=== PATIENT | female | born 1950 | race Caucasian/White ===

== ENCOUNTER 2016-10-12 00:06 | Inpatient (IN) ==
--- NOTE | 2016-10-12 00:47 | Emergency Department Note ---
Disposition Clinical Impression: Internal hernia, Small bowel obstruction Disposition: Admitted As Inpatient Condition: Serious Time of Disposition: 05:00 Abdominal Pain HPI - General Chief Complaint: ED Abdominal Pain Stated Complaint: LLQ ABD pain Time Seen by Provider: 10/12/16 00:20 Source: patient Mode of arrival: ambulatory Limitations: no limitations Nursing Notes Reviewed: Yes Vital Signs Reviewed: Yes - History of Present Illness HPI Narrative: Patient is a 66-year-old female who presents today due to acute left lower quadrant abdominal pain that started at 6 PM the prior evening and then got worse and spread up to her epigastric region. She admits to diaphoresis, nausea , one episode of vomiting, one episode of green stool. She is in significant pain and writhing around on exam, diaphoretic. She does admit to having appendectomy, cholecystectomy, hysterectomy in the past. She describes her pain as sharp left lower quadrant, no radiation, 10 out of 10. Pain Scale: 10 - Related Data Home Medications Medication Instructions Recorded Confirmed Levothyroxine [Synthroid] 137 mcg PO 02/14/15 02/14/15 Simvastatin 02/14/15 02/14/15 TraMADol 02/14/15 02/14/15 Zoloft 02/14/15 02/14/15 Allergies Allergy/AdvReac Type Severity Reaction Status Date / Time No Known Allergies Allergy Verified 02/14/15 03:20 All systems ED: reviewed and negative except as stated. Constitutional: Denies: fever Cardiovascular: Denies: chest pain Respiratory: Denies: dyspnea Gastrointestinal: Reports: abdominal pain, nausea, vomiting. Denies: diarrhea Abdominal Pain PMH - Past Medical History Medical history: Reports: arthritis, asthma, thyroid disease, other Female Surgical History: Reports: appendectomy, cholecystectomy, hysterectomy Psychiatric history: Reports: anxiety, depression - Social History Smoking status: Former smoker Alcohol use: Reports: none Drug use: Reports: none Physical Exam - General Limitations: no limitations General appearance: alert, anxious, in distress - Head Head exam: atraumatic, normocephalic, normal inspection - Eye Eye exam: Present: normal appearance, PERRL, EOMI - ENT ENT exam: normal exam, normal oropharynx, mucous membranes moist - Neck Neck exam: Present: normal inspection, full ROM, trachea midline - Chest Chest inspection: Present: normal inspection, symmetric chest wall rise - Respiratory Respiratory exam: Present: normal lung sounds bilaterally - Cardiovascular Cardiovascular exam: Present: regular rate, normal rhythm, normal heart sounds - Abdominal Exam Abdominal exam: Present: soft, tenderness (Significant tenderness of the left lower quadrant, abdomen appears to be distended.). Absent: guarding - Extremities Exam Extremities exam: Present: normal inspection, full ROM. Absent: tenderness, pedal edema - Neurological Exam Neurological exam: Present: alert, oriented X3 - Psychiatric Psychiatric exam: Present: anxious - Skin Skin exam: Present: intact, normal color, diaphoresis Course Course Narrative: Blood pressure was mildly high at 140s, likely secondary to pain. Otherwise, the rest of the vitals were within normal limits. Physical exam showed a diaphoretic patient, visibly uncomfortable, Significant tenderness of the left lower quadrant, abdomen appears to be distended. Labs showed elevation in white blood cell count. BMP was not concerning. LFTs within normal limits. Troponin negative. Patient given Dilaudid for pain control. Patient had a CT of the abdomen and pelvis that showed an internal hernia resulting in a small bowel obstruction. I called the surgeon on-call, Dr. Devine, who requested that I place an NG tube and then admitted the patient to surgical floor and he will further evaluate the patient. Abdomen/Pelvis CT 10/12/16 01:06 IMPRESSION: Internal hernia resulting in small-bowel obstruction. This is considered a closed loop obstruction. There is no evidence of pneumatosis or portal venous gas. Findings were discussed with Dr. Ayan Kramer at 2:46 am on 10/12/2016. D/ / Priyank Szymanski MD / Priyank Szymanski MD Interpreting Provider: Priyank Szymanski MD X-Ray 10/12/16 04:01 IMPRESSION: Nasogastric drain tip projects over the gastric body. D/ / Priyank Szymanski MD / Priyank Szymanski MD Interpreting Provider: Priyank Szymanski MD Vital Signs Temperature 97.4 F L 10/12/16 00:11 Pulse Rate 78 10/12/16 00:11 Respiratory Rate 20 10/12/16 00:11 Blood Pressure 148/90 10/12/16 00:11 O2 Sat by Pulse Oximetry 96 10/12/16 00:11 Temperature 97.4 F L 10/12/16 08:27 Pulse Rate 89 10/12/16 08:27 Respiratory Rate 16 10/12/16 08:27 Blood Pressure 124/71 10/12/16 08:27 O2 Sat by Pulse Oximetry 96 10/12/16 08:27 Oxygen Delivery Oxygen Delivery Nasal Cannula Abdominal Pain - MDM Narrative Medical decision making narrative: Blood pressure was mildly high at 140s, likely secondary to pain. Otherwise, the rest of the vitals were within normal limits. Physical exam showed a diaphoretic patient, visibly uncomfortable, Significant tenderness of the left lower quadrant, abdomen appears to be distended. Labs showed elevation in white blood cell count. BMP was not concerning. LFTs within normal limits. Troponin negative. Patient given Dilaudid for pain control. Patient had a CT of the abdomen and pelvis that showed an internal hernia resulting in a small bowel obstruction. I called the surgeon on-call, Dr. Devine, who requested that I place an NG tube and then admitted the patient to surgical floor and he will further evaluate the patient. - Medical Records Medical records reviewed: Yes I reviewed the patient's medical records. - Lab Data Lab results reviewed: Yes I reviewed the patient's lab results. Result diagrams: 10/12/16 00:45 10/12/16 00:45 Lab Results 10/12/16 10/12/16 10/12/16 Range/Units 00:45 00:45 00:45 WBC 15.8 H (4.3-11.1) K/mcL RBC 4.67 (3.82-4.97) M/mcL Hgb 13.5 (11.5-15.4) g/dL Hct 39.4 (35.3-44.9) % MCV 84.4 (83.0-100.0) fL MCH 28.9 (28.0-33.3) pg MCHC 34.3 (31.6-35.5) g/dL RDW 12.4 (11.5-14.5) % Plt Count 296 (140-400) K/mcL MPV 9.2 L (9.4-12.4) fL Immature Gran % 0.6 (0-4) % Seg Neutrophils % 70.1 % Lymphocytes % 21.3 % Monocytes % 7.3 % Eosinophils % 0.4 % Basophils % 0.3 % Neutrophils # 11.1 H (1.6-8.9) K/mcL Lymphocytes # 3.4 (0.6-4.6) K/mcL Monocytes # 1.2 (0.0-1.3) K/mcL Eosinophils # 0.1 (0.0-0.6) K/mcL Basophils # 0.0 (0.0-0.2) K/mcL Sodium 139 (136-145) mEq/L Potassium 3.4 L (3.5-4.5) mEq/L Chloride 106 (98-109) mEq/L Carbon Dioxide 20 (19-29) mEq/L BUN 20 (7-20) mg/dL Creatinine 0.79 (0.57-1.11) mg/dL Est GFR ( Amer) > 60 (> 60) Est GFR (Non-Af Amer) > 60 (> 60) BUN/Creatinine Ratio 25 (6-26) Glucose 218 H (70-99) mg/dL POC Glucose (58-89) Calculated Osmolality 297 (280-300) Lactic Acid (0.5-2.2) mmol/L Calcium 9.7 (8.6-10.8) mg/dL Total Bilirubin 0.5 (0.2-1.2) mg/dL Direct Bilirubin 0.2 (0.0-0.5) mg/dL Indirect Bilirubin 0.3 (0.0-1.2) mg/dL AST 19 (5-34) Units/L ALT 17 (0-55) Units/L Alkaline Phosphatase 109 (38-126) Units/L Troponin I 0.01 (0-0.03) ng/mL Serum Total Protein 7.1 (6.0-8.3) g/dL Albumin 4.2 (3.5-5.0) g/dL Globulin 2.9 (2.4-3.5) g/dL Albumin/Globulin Ratio 1.4 (1.1-2.2) Lipase 23 (8-78) Units/L Urine Color (Yellow) Urine Clarity (Clear) Urine pH (5.0-8.0) pH Units Ur Specific [place] (1.010-1.025) Urine Protein (Neg-Trace) mg/dL Urine Glucose (UA) (Normal) mg/dL Urine Ketones (Negative) mg/dL Urine Blood (Negative) Urine Nitrite (Negative) Urine Bilirubin (Negative) Urine Urobilinogen (Normal) mg/dL Ur Leukocyte Esterase (Negative) Urine Microscopic RBC (0-3) per hpf Urine Microscopic WBC (0-3) per hpf Ur Squamous Epith Cells (None-Few) per lpf Urine Bacteria (None-Few) per hpf Hyaline Casts (None-Few) per lpf Ur Culture Indicated? (NO) 10/12/16 10/12/16 10/12/16 Range/Units 01:17 03:24 05:50 WBC (4.3-11.1) K/mcL RBC (3.82-4.97) M/mcL Hgb (11.5-15.4) g/dL Hct (35.3-44.9) % MCV (83.0-100.0) fL MCH (28.0-33.3) pg MCHC (31.6-35.5) g/dL RDW (11.5-14.5) % Plt Count (140-400) K/mcL MPV (9.4-12.4) fL Immature Gran % (0-4) % Seg Neutrophils % % Lymphocytes % % Monocytes % % Eosinophils % % Basophils % % Neutrophils # (1.6-8.9) K/mcL Lymphocytes # (0.6-4.6) K/mcL Monocytes # (0.0-1.3) K/mcL Eosinophils # (0.0-0.6) K/mcL Basophils # (0.0-0.2) K/mcL Sodium (136-145) mEq/L Potassium (3.5-4.5) mEq/L Chloride (98-109) mEq/L Carbon Dioxide (19-29) mEq/L BUN (7-20) mg/dL Creatinine (0.57-1.11) mg/dL Est GFR ( Amer) (> 60) Est GFR (Non-Af Amer) (> 60) BUN/Creatinine Ratio (6-26) Glucose (70-99) mg/dL POC Glucose 162 H (58-89) Calculated Osmolality (280-300) Lactic Acid 1.6 (0.5-2.2) mmol/L Calcium (8.6-10.8) mg/dL Total Bilirubin (0.2-1.2) mg/dL Direct Bilirubin (0.0-0.5) mg/dL Indirect Bilirubin (0.0-1.2) mg/dL AST (5-34) Units/L ALT (0-55) Units/L Alkaline Phosphatase (38-126) Units/L Troponin I (0-0.03) ng/mL Serum Total Protein (6.0-8.3) g/dL Albumin (3.5-5.0) g/dL Globulin (2.4-3.5) g/dL Albumin/Globulin Ratio (1.1-2.2) Lipase (8-78) Units/L Urine Color Yellow (Yellow) Urine Clarity Clear (Clear) Urine pH 6.0 (5.0-8.0) pH Units Ur Specific [place] 1.021 (1.010-1.025) Urine Protein Negative (Neg-Trace) mg/dL Urine Glucose (UA) 250 H (Normal) mg/dL Urine Ketones 40 H (Negative) mg/dL Urine Blood Trace H (Negative) Urine Nitrite Negative (Negative) Urine Bilirubin Negative (Negative) Urine Urobilinogen Normal (Normal) mg/dL Ur Leukocyte Esterase Moderate H (Negative) Urine Microscopic RBC 0-3 (0-3) per hpf Urine Microscopic WBC 5-15 H (0-3) per hpf Ur Squamous Epith Cells Many H (None-Few) per lpf Urine Bacteria None Seen (None-Few) per hpf Hyaline Casts None Seen (None-Few) per lpf Ur Culture Indicated? YES A (NO) - Radiology Data Radiology results reviewed: Yes I reviewed the patient's radiology results. Abdomen/Pelvis CT 10/12/16 01:06 IMPRESSION: Internal hernia resulting in small-bowel obstruction. This is considered a closed loop obstruction. There is no evidence of pneumatosis or portal venous gas. Findings were discussed with Dr. Ayan Kramer at 2:46 am on 10/12/2016. D/ / Priyank Szymanski MD / Priyank Szymanski MD Interpreting Provider: Priyank Szymanski MD X-Ray 10/12/16 04:01 IMPRESSION: Nasogastric drain tip projects over the gastric body. D/ / Priyank Szymanski MD / Priyank Szymanski MD Interpreting Provider: Priyank Szymanski MD Attestation Statement - Attestation Attestation: I, Sin Mcclain MD, personally evaluated this patient and discussed their management with the resident physician. I reviewed the resident's note and agree with the documented findings, medical decision making, and plan of care. 66-year-old female presents to the emergency department with a complaint of acute onset of left lower quadrant abdominal pain which started about 6 PM this evening and then Progressively worse and spread throughout the abdomen. She complains of nausea and one episode of vomiting. No fever. No history of similar problems. On examination patient is a well-developed well-nourished elderly female in no acute distress but does appear to be in moderate discomfort. She is alert and oriented 3. There is no cyanosis. She is diaphoretic. Breath sounds are clear and equal bilaterally. Heart regular. Abdomen is soft with bowel sounds. There is moderate left lower quadrant tenderness with mild guarding. Labs reviewed. CT of the abdomen and pelvis shows an internal hernia resulting in small bowel obstruction. The surgeon transportation museum helper, Dr. Devine, was consulted and accepted admission of the patient to his service.
[2016-10-12 00:53] LABS: Basophils % 0.3 %; Eosinophils # 0.1 K/mcL (0.0-0.6); Eosinophils % 0.4 %; Hematocrit 39.4 % (35.3-44.9); Hemoglobin 13.5 g/dL (11.5-15.4); Immature Granulocytes % 0.6 % (0-4); Lymphocytes # 3.4 K/mcL (0.6-4.6); Lymphocytes % 21.3 %; Mean Corpuscular HGB Conc 34.3 g/dL (31.6-35.5); Mean Corpuscular Hemoglobin 28.9 pg (28.0-33.3); Mean Corpuscular Volume 84.4 fL (83.0-100.0); Mean Platelet Volume 9.2 fL (9.4-12.4); Monocytes # 1.2 K/mcL (0.0-1.3); Monocytes % 7.3 %; Neutrophils # 11.1 K/mcL (1.6-8.9); Platelet Count 296 K/mcL (140-400); Red Blood Count 4.67 M/mcL (3.82-4.97); Red Cell Distribution Width 12.4 % (11.5-14.5); Segmented Neutrophils % 70.1 %
[2016-10-12 01:07] LABS: Alanine Aminotransferase 17 Units/L (0-55); Albumin 4.2 g/dL (3.5-5.0); Albumin/Globulin Ratio 1.4 (1.1-2.2); Alkaline Phosphatase 109 Units/L (38-126); Aspartate Amino Transferase 19 Units/L (5-34); BUN/Creatinine Ratio 25 (6-26); Bilirubin,Direct 0.2 mg/dL (0.0-0.5); Bilirubin,Indirect 0.3 mg/dL (0.0-1.2); Bilirubin,Total 0.5 mg/dL (0.2-1.2); Blood Urea Nitrogen 20 mg/dL (7-20); Calcium 9.7 mg/dL (8.6-10.8); Carbon Dioxide 20 mEq/L (19-29); Chloride 106 mEq/L (98-109); Globulin 2.9 g/dL (2.4-3.5); Glucose 218 mg/dL (70-99); Lipase 23 Units/L (8-78); Osmolality,Calculated 297 (280-300); Potassium 3.4 mEq/L (3.5-4.5); Sodium 139 mEq/L (136-145); Total Protein 7.1 g/dL (6.0-8.3); eGFR For African Americans > 60 (> 60); eGFR For Non-African Americans > 60 (> 60)
[2016-10-12] MEDS ORDERED: *HR* HYDROmorphone (PF) 1 MG/ML SYRINGE IVP ONE ×2 (01:31→04:12)
[2016-10-12] MEDS ORDERED: 0.9 % Sodium Chloride 1,000 ML IVC ONE (01:31)
[2016-10-12] MEDS ORDERED: Ondansetron 4 MG/2 ML VIAL IVP ONE ×2 (01:31→04:12)
[2016-10-12 01:42] LABS: Bilirubin,Urine Negative (Negative); Blood,Urine Trace (Negative); Clarity,Urine Clear (Clear); Color,Urine Yellow (Yellow); Glucose,Urine (UA) 250 mg/dL (Normal); Ketones,Urine 40 mg/dL (Negative); Leukocyte Esterase,Urine Moderate (Negative); Nitrite,Urine Negative (Negative); Protein,Urine Negative (Neg-Trace); Specific Gravity,Urine 1.021 (1.010-1.025); Urobilinogen,Urine Normal (Normal)
[2016-10-12 01:45] LABS: Bacteria,Urine None Seen per hpf (None-Few); Hyaline Casts,Urine None Seen per lpf (None-Few); RBC,Urine 0-3 per hpf (0-3); Squamous Epithelial Cell,Urine Many per lpf (None-Few)
[2016-10-12] MEDS ORDERED: Dexamethasone 4 MG/ML VIAL ONE (05:46)
[2016-10-12] MEDS ORDERED: Ondansetron 4 MG/2 ML VIAL ONE (05:46)
[2016-10-12] MEDS ORDERED: *HR* Succinylcholine 200 MG/10 ML VIAL IVP ONE (05:47)
[2016-10-12] MEDS ORDERED: *HR* Rocuronium Bromide 50 MG/5 ML VIAL ONE (05:47)
[2016-10-12] MEDS ORDERED: *HR* FentaNYL (PF) 100 MCG/2 ML VIAL ONE (05:47)
[2016-10-12] MEDS ORDERED: *HR* Midazolam HCl 2 MG/2 ML VIAL ONE (05:47)
[2016-10-12] MEDS ORDERED: Lidocaine -MPF 2% 2 ML VIAL ONE (05:47)
[2016-10-12] MEDS ORDERED: *HR* Propofol 200 MG/20 ML VIAL IVP ONE (05:47)
--- NOTE | 2016-10-12 06:10 | General Surg History&Physical ---
Date of Encounter: 10/12/16 Time of Encounter: 06:08 Assessment and Plan (1) Small bowel obstruction due to adhesions Current Visit: Yes Status: Acute plan for exploratory laparotomy with reduction of small bowel obstruction. Risks, benefits, and expected outcomes were explained and she agrees to proceed. The assessment and plan as outlined above was discussed with the patient and/or family members who expressed understanding and agreement. All questions were answered. History of Present Illness HPI: Ms. Arriola is a 66 year old female was son's onset of abdominal pain. A CT revealed a closed loop obstruction. She has had emesis 1 time in the She currently has a nasogastric with minimal symptoms. She denies any previous episodes such as this. Pain is rated as a 10/10 and is cramping in nature. Past Med Surg Social Fam HX - Past Medical History Medical history: arthritis, asthma, thyroid disease, other Psychiatric history: anxiety, depression - Past Surgical History Surgical History: appendectomy, cholecystectomy, hysterectomy - Social History Smoking Status: Former smoker Smokeless Tobacco Status: No Alcohol use: none Drug use: none - Family History Mother Hx Family Cardiac Disorders: Yes (HTN) Grandmother Family Member Ethnicity: Non- Living Status: Age at : 71 Hx Family Cancer: Yes (bowel cancer) Medications and Allergies Levothyroxine [Synthroid] 137 mcg PO 02/14/15 [History] Simvastatin 02/14/15 [History] TraMADol 02/14/15 [History] Zoloft 02/14/15 [History] Allergies No Known Allergies Allergy (Verified 02/14/15 03:20) Review of Systems All systems PM: reviewed and no additional remarkable complaints except as stated All systems PM: A 10-system review of systems was performed and is negative for pertinent findings except as documented above in the HPI. General Surgery Exam Initial Vital Signs Temp Pulse Resp BP Pulse Ox 97.4 F L 78 20 148/90 96 10/12/16 00:11 10/12/16 00:11 10/12/16 00:11 10/12/16 00:11 10/12/16 00:11 - General physical appearance well nourished, no distress - Eyes PERRL, normal ocular movement - Neck trachea midline, no lymphadectomy - Respiratory normal respiratory effort - Cardiovascular Cardiovascular exam: Present: RRR - Abdomen Abdomen general surgery: Present: soft, tender Abdominal Tenderness: Present: LLQ - Musculoskeletal Present: normal posture - Psychiatric Psychiatric general surgery: Present: A&Ox3, speech is normal Results - Labs 10/12/16 00:45 10/12/16 00:45 Abnormal lab results WBC 15.8 K/mcL (4.3-11.1) H 10/12/16 00:45 MPV 9.2 fL (9.4-12.4) L 10/12/16 00:45 Neutrophils # 11.1 K/mcL (1.6-8.9) H 10/12/16 00:45 Potassium 3.4 mEq/L (3.5-4.5) L 10/12/16 00:45 Glucose 218 mg/dL (70-99) H 10/12/16 00:45 Urine Glucose (UA) 250 mg/dL (Normal) H 10/12/16 01:17 Urine Ketones 40 mg/dL (Negative) H 10/12/16 01:17 Urine Blood Trace (Negative) H 10/12/16 01:17 Ur Leukocyte Esterase Moderate (Negative) H 10/12/16 01:17 Urine Microscopic WBC 5-15 per hpf (0-3) H 10/12/16 01:17 Ur Squamous Epith Cells Many per lpf (None-Few) H 10/12/16 01:17 Ur Culture Indicated? YES (NO) A 10/12/16 01:17 All other labs normal. - Imaging CT scan - abdomen: image reviewed CT scan - pelvis: image reviewed
[2016-10-12] MEDS ORDERED: *HR* Morphine 2 MG/ML SYRINGE IVP PRN (06:12)
[2016-10-12] MEDS ORDERED: *HR* Promethazine 25 MG/ML VIAL IVP PRN ×3 (06:12→08:31)
[2016-10-12] MEDS ORDERED: Ondansetron 4 MG/2 ML VIAL IVP PRN ×2 (06:12→08:31)
[2016-10-12] MEDS ORDERED: 0.9 % Sodium Chloride 1,000 ML IVC SCH (06:15)
--- NOTE | 2016-10-12 06:15 | Anesthesia Evaluation PreOp ---
Date of Encounter: 10/12/16 Time of Encounter: 06:11 - Past History Planned Operation: Exploratory Laparotomy Cardiac History: Hyperlipidemia Pulmonary History: Former smoker (quit 12 years ago, smoked for 20 years), Asthma, COPD IDENTIFICATION TECHNICIAN History: Denies Any Significant HX Other Medical History: Thyroid, GERD Anesthesia History: No Prior Anesthetic Complications, Past Anesthesia Alcohol Use: none Drug use: none Medications and Allergies Levothyroxine [Synthroid] 137 mcg PO 02/14/15 [History] Simvastatin 02/14/15 [History] TraMADol 02/14/15 [History] Zoloft 02/14/15 [History] Allergies No Known Allergies Allergy (Verified 02/14/15 03:20) - Meds/Allergy Pre-op Review Medications Reviewed: Yes Allergies Reviewed: Yes Beta Blockers on Current Med List: No Anesthesia Results - Labs 10/12/16 00:45 10/12/16 00:45 - Imaging EKG: report reviewed (10/12/2016 SR, minimal ST depression 02/14/2015 SR) Additional studies: 02/14/2015 Nuclear Stress exercise ECG is negative for ischemia EF>70% this study is negative for ischemia or infarct Anesthesia Exam Vital Signs/O2 Sat, Most Current Temp Pulse Resp BP Pulse Ox 97.5 F L 94 16 114/75 99 10/12/16 05:43 10/12/16 05:43 10/12/16 05:43 10/12/16 05:43 10/12/16 05:43 Height: 5'7''/1.7 m Weight: 200 lbs/90.718 kg NPO (# of Hours): 8 Pain Scale: 5 Pain Scale Used: Numeric (1 - 10) - HEENT Pupil (Motor): EOMI Mallampati: II Teeth: Edentulous Oral Opening: Greater than 3 - IDENTIFICATION TECHNICIAN LOC: Oriented IDENTIFICATION TECHNICIAN Motor: Normal RUE, Normal LUE, Normal RLE, Normal LLE, Normal Face IDENTIFICATION TECHNICIAN Sensory: Normal: RUE, LUE, RLE, LLE, Face - Cardiac Rhythm: Regular Murmur: None - Pulmonary Breath Sounds: bilateral Clear Respiratory Effort: Symmetrical Anesthesia Assess/Plan ASA Score: 2 Modified Eze Scale for Level of Consciousness: Cooperative, oriented, and tranquil Anesthetic Plan: General Monitoring Plan: Standard Monitors Recovery Plan: PACU
[2016-10-12] MEDS ORDERED: Albuterol 2.5 MG/3 ML NEBULIZER ONE (06:18)
[2016-10-12] MEDS ORDERED: Albuterol 2.5 MG/3 ML NEBULIZER IH ONE (06:23)
[2016-10-12] MEDS ORDERED: Ringers Solution, Lactated 1,000 ML IVC SCH (06:30)
[2016-10-12] MEDS ORDERED: *HR* HYDROmorphone (PF) 1 MG/ML SYRINGE ONE (07:57)
[2016-10-12] MEDS: *HR* HYDROmorphone (PF) 1 MG/ML SYRINGE IVP PRN ×2 (07:58→08:03)
--- NOTE | 2016-10-12 08:24 | Anesthesia Evaluation Post Op ---
Date of Encounter: 10/12/16 Time of Encounter: 08:23 - Vital Signs Vital Signs: Last Vital Signs Temp 97.4 F L 10/12/16 08:17 Pulse 90 10/12/16 08:17 Resp 17 10/12/16 08:17 BP 131/73 10/12/16 08:17 Pulse Ox 96 10/12/16 08:17 - Lungs Lungs: Clear Ascult./Percussion - Airway Airway: Non-obstructed - Cardiovascular Regular Rate - Mental Status Mental Status: Alert & Oriented, Answers Appropriately - Pain Pain Scale: 2 - Nausea Vomiting Nausea Vomiting: Not Present - Hydration Hydration: NPO - Discharge PostOp Status: Transfer Patient to floor
[2016-10-12] MEDS ORDERED: Pantoprazole 40 MG VIAL IVP SCH (09:00)
[2016-10-12] MEDS: 0.9 % Sodium Chloride 1,000 ML IVC SCH ×2 (09:14→22:30)
[2016-10-12] MEDS: *HR* Morphine 2 MG/ML SYRINGE IVP PRN ×4 (09:15→23:48)
[2016-10-12] MEDS: Pantoprazole 40 MG VIAL IVP SCH (09:15)
[2016-10-12] MEDS ORDERED: Neostigmine Methylsulfate 3 MG/3 ML SYRINGE ONE (10:12)
--- NOTE | 2016-10-12 12:28 | Electrocardiograph Report ---
[place] [address] Test Date: 2016-10-12 Pat Name: Nelda Arriola Department: 105 Room: 3A Gender: F Log Getter: : 1950 Requested By: Sin Mcclain Order Number: [id number] Reading MD: Gage Johansen MD Measurements Intervals Charlo Rate: 81 P: 71 WV: 175 QRS: 66 QRSD: 96 T: 73 QT: 403 QTc: 440 Interpretive Statements SINUS RHYTHM BASELINE ARTIFACT Electronically Signed On 10-12-2016 12:27:11 EDT by Gage Johansen MD
[2016-10-12] MEDS: *HR* Heparin 5,000 UNIT/ML VIAL SQ SCH (17:34)
[2016-10-12] MEDS ORDERED: *HR* Heparin 5,000 UNIT/ML VIAL SQ SCH (18:00)
[2016-10-13] MEDS: *HR* Morphine 2 MG/ML SYRINGE IVP PRN ×4 (04:05→22:22)
[2016-10-13] MEDS: *HR* Heparin 5,000 UNIT/ML VIAL SQ SCH ×2 (05:40→18:19)
[2016-10-13 05:42] LABS: Basophils % 0.2 %; Hematocrit 38.5 % (35.3-44.9); Hemoglobin 12.8 g/dL (11.5-15.4); Immature Granulocytes % 0.4 % (0-4); Immature Platelets 1.7 % (1.1-6.1); Lymphocytes # 1.2 K/mcL (0.6-4.6); Lymphocytes % 11.2 %; Mean Corpuscular HGB Conc 33.2 g/dL (31.6-35.5); Mean Corpuscular Hemoglobin 28.8 pg (28.0-33.3); Mean Corpuscular Volume 86.5 fL (83.0-100.0); Mean Platelet Volume 9.2 fL (9.4-12.4); Monocytes # 1.1 K/mcL (0.0-1.3); Monocytes % 10.9 %; Platelet Count 295 K/mcL (140-400); Red Blood Count 4.45 M/mcL (3.82-4.97); Segmented Neutrophils % 77.3 %
[2016-10-13 05:57] LABS: BUN/Creatinine Ratio 18 (6-26); Blood Urea Nitrogen 12 mg/dL (7-20); Calcium 8.9 mg/dL (8.6-10.8); Carbon Dioxide 24 mEq/L (19-29); Chloride 106 mEq/L (98-109); Glucose 170 mg/dL (70-99); Osmolality,Calculated 294 (280-300); Potassium 3.7 mEq/L (3.5-4.5); Sodium 140 mEq/L (136-145); eGFR For African Americans > 60 (> 60); eGFR For Non-African Americans > 60 (> 60)
[2016-10-13] MEDS: Pantoprazole 40 MG VIAL IVP SCH (08:36)
[2016-10-13] MEDS ORDERED: 0.9 % Sodium Chloride 1,000 ML IVC ONE (13:25)
--- NOTE | 2016-10-13 13:37 | General Surgery Progress Note ---
Date of Encounter: 10/13/16 Time of Encounter: 13:20 - Assessment and Plan (1) Internal hernia Current Visit: Yes Status: Acute Postop day #1 from exploratory laparotomy, lysis of adhesions and reduction of internal hernia Continue bowel rest while awaiting return of bowel function- may have ice chips , gum, hard tack candy NG tube to low intermittent wall suction- cepacol added for sore throat IV fluids- 75 mL's per hour (1000ml fluid bolus now for low UOP) Supportive care and pain control- Toradol added for the next 48 hours Ambulate hallways 3 times a day with assistance- may clamp NG tube for ambulation Strict measurement of intake and output Incentive spirometer every 1 hour while awake PPI therapy daily Repeat a.m. BMP (2) DVT prophylaxis Current Visit: Yes Status: Acute Heparin 5000 units subcutaneous twice daily for DVT prophylaxis Intermittent compression stockings to bilateral lower extremity for DVT prophylaxis Ambulate hallways 3 times a day with assistance Subjective Patient reports: feels better, still having pain, pain is less, voiding w/o difficulty (frequent and small amounts (no documentation)), no flatus, no bowel movement, afebrile, other (complaint of sore throat and ear discomfort from NG tube) Objective Vital Signs - Last 8 Hours Temp Pulse Resp BP Pulse Ox 10/13/16 11:40 98.0 F 111 18 139/86 93 10/13/16 07:14 98.2 F 109 16 147/88 92 Intake and Output 10/12/16 10/13/16 10/13/16 23:59 07:59 15:59 Intake Total 1000 / 1000 0 / 0 1000 / 1000 Output Total 50 / 50 200 / 200 Balance 950 / 950 -200 / -200 1000 / 1000 Intake: IV Fluids 1000 / 1000 1000 / 1000 0.9 % Sodium Chloride 1, 1000 / 1000 1000 / 1000 000 ML @ 75 mls/hr IVC . [id number] RADHA Rx#: [id number] Oral 0 / 0 0 / 0 0 / 0 Output: Urine 50 / 50 0 / 0 Gastric Drainage 200 / 200 Other: Meal npo # Urine Diapers 1 Weight 89.811 kg Blood Glucose* 160 153 147 Patient Weight 10/13/16 23:59 Weight 89.811 kg - General physical appearance well developed, well nourished, no distress, moderate pain - Eyes normal ocular movement - ENT dry mucosa, atraumatic, normocephalic - Neck Neck exam: trachea midline - Respiratory normal respiratory effort, clear to auscultation - Cardiovascular Cardiovascular exam: Present: tachycardia - Abdomen Abdomen: Present: bowel sounds present (minimal), soft, tender (Expected postoperative tenderness) - Incision Incision: Present: clean and dry, intact - Neurologic CN 2-12 grossly intact - Psychiatric oriented to time, oriented to person, oriented to place, speech is normal, memory intact - Labs 10/13/16 05:02 10/13/16 05:02 Diabetes panel 10/13/16 Range/Units 05:02 Sodium 140 (136-145) mEq/L Potassium 3.7 (3.5-4.5) mEq/L Chloride 106 (98-109) mEq/L Carbon Dioxide 24 (19-29) mEq/L BUN 12 (7-20) mg/dL Creatinine 0.68 (0.57-1.11) mg/dL Glucose 170 H (70-99) mg/dL Calcium 8.9 (8.6-10.8) mg/dL Calcium panel 10/13/16 Range/Units 05:02 Calcium 8.9 (8.6-10.8) mg/dL Pituitary panel 10/13/16 Range/Units 05:02 Sodium 140 (136-145) mEq/L Potassium 3.7 (3.5-4.5) mEq/L Chloride 106 (98-109) mEq/L Carbon Dioxide 24 (19-29) mEq/L BUN 12 (7-20) mg/dL Creatinine 0.68 (0.57-1.11) mg/dL Glucose 170 H (70-99) mg/dL Calcium 8.9 (8.6-10.8) mg/dL Adrenal panel 10/13/16 Range/Units 05:02 Sodium 140 (136-145) mEq/L Potassium 3.7 (3.5-4.5) mEq/L Chloride 106 (98-109) mEq/L Carbon Dioxide 24 (19-29) mEq/L BUN 12 (7-20) mg/dL Creatinine 0.68 (0.57-1.11) mg/dL Glucose 170 H (70-99) mg/dL Calcium 8.9 (8.6-10.8) mg/dL - VTE Documentation of Mechanical Device: Intermittent pneumatic compression device Consult Discharge Plan - Plan Referrals: Chidi Emery MD [Primary Care Provider] -
--- NOTE | 2016-10-13 14:39 | Operative Note ---
Date of procedure: 10/12/16 Pre-op diagnosis: small bowel obstruction Post-op diagnosis: same Procedure: Exploratory laparotomy with lysis of adhesions times 35 minutes, followed by closure of internal hernia Anesthesia: SIMRAN Surgeon: Naif Devine Estimated blood loss (cc): 5 Condition: stable Disposition: floor Procedure in Detail: After informed consent, the patient was taken to the operating room placed in a supine position. After adequate sedation and anesthesia the abdomen was prepped and draped. Midline incision was made approximately 12 cm in length. Dissection was carried down through the subcutaneous tissues and through the linea alba. A Bookwalter retractor was placed on the field and used to retract the abdomen. There is significant amount of ascites identified in the abdomen. There is no foul smell or succus. After the abdomen was suctioned dry I was able to identify a 3 foot loop of small bowel which had herniated through an internal hernia. Small bowel was reduced. During which time after reduction, the colon was dissected free from the lateral pelvic sidewall. This had created the internal hernia from her previous hysterectomy site. Once this was completed then the internal hernia was closed with a 0 Vicryl suture in running fashion. Approximately 20 minutes had passed after reducing the small bowel. It revealed a more healthy-looking color as well as peristalsis. Therefore no small bowel was resected. At this point the procedure was terminated Seprafilm was placed in the abdomen. The abdominal wall was closed with a looped PDS suture times 2. The skin was closed bob. She tolerated the procedure well.
[2016-10-13] MEDS: 0.9 % Sodium Chloride 1,000 ML IVC SCH (14:55)
[2016-10-13] MEDS: Ketorolac 15 MG/ML VIAL IVP SCH (18:18)
[2016-10-14] MEDS: Ketorolac 15 MG/ML VIAL IVP SCH ×5 (00:17→23:52)
[2016-10-14] MEDS: 0.9 % Sodium Chloride 1,000 ML IVC SCH (05:01)
[2016-10-14] MEDS: *HR* Heparin 5,000 UNIT/ML VIAL SQ SCH ×2 (05:05→18:09)
[2016-10-14 05:57] LABS: BUN/Creatinine Ratio 22 (6-26); Blood Urea Nitrogen 14 mg/dL (7-20); Calcium 9.1 mg/dL (8.6-10.8); Carbon Dioxide 27 mEq/L (19-29); Chloride 109 mEq/L (98-109); Glucose 122 mg/dL (70-99); Osmolality,Calculated 296 (280-300); Potassium 3.3 mEq/L (3.5-4.5); Sodium 142 mEq/L (136-145); eGFR For African Americans > 60 (> 60); eGFR For Non-African Americans > 60 (> 60)
[2016-10-14] MEDS: Pantoprazole 40 MG VIAL IVP SCH (08:42)
--- NOTE | 2016-10-14 09:33 | General Surgery Progress Note ---
<Neo Reyes - Last Filed: 10/14/16 09:31> Date of Encounter: 10/14/16 Time of Encounter: 09:31 - Assessment and Plan (1) Internal hernia Current Visit: Yes Status: Acute POD # 2 s/p exploratory laparotomy with lysis of adhesions and repair of internal hernia. Continue supportive care and management Afebrile. NPO except ice chips or hard candy NGT output - 200cc yesterday Throat still irritated with lozenge, will change to spray Continue IVF Monitor bowel function Patient to use ICS Encouraged OOB as much as possible and nursing will clamp NGT for ambulation Pain is well controlled at this time. (2) Hypokalemia Current Visit: Yes Status: Acute 20meQ ordered with IVF. Recheck tomorrow. Subjective Narrative: Patient is lying comfortably in bed this morning. No concerns overnight. Rojas was placed yesterday and has resulted in good urine output. Pain is well controlled. Throat pain is still present and she reports no BM or flatus. Objective Vital Signs - Last 8 Hours Temp Pulse Resp BP Pulse Ox 10/14/16 07:33 98.1 F 93 16 122/73 93 10/14/16 07:18 91 10/14/16 03:59 98.1 F 110 14 130/79 91 Intake and Output 10/13/16 10/14/16 10/14/16 23:59 07:59 15:59 Intake Total 0 / 0 1000 / 1000 Output Total 120 / 120 3000 / 3000 Balance -120 / -120 -2000 / -2000 Intake: IV Fluids 1000 / 1000 0.9 % Sodium Chloride 1, 1000 / 1000 000 ML @ 75 mls/hr IVC . [id number] [facility] Rx#: [id number] Oral 0 / 0 0 / 0 Output: Urine 120 / 120 1300 / 1300 2-way Urethral 1300 / 1300 Catheter 1700 / 1700 Other: Weight 88.904 kg Blood Glucose* 139 119 Patient Weight 10/14/16 23:59 Weight 88.904 kg - General physical appearance no distress, obese - Neck Neck exam: trachea midline - Respiratory normal respiratory effort, clear to auscultation - Cardiovascular Cardiovascular exam: Present: RRR, no murmurs/rubs/gallops - Abdomen Abdomen: Present: soft, tender (incisional pain), wound (midline incision noted with dressing. clean, dry and bob intact without dehiscence. No erythema or drainage. ). Absent: bowel sounds present - Neurologic CN 2-12 grossly intact - Psychiatric oriented to time, oriented to person, oriented to place, speech is normal, memory intact - Labs 10/13/16 05:02 10/14/16 04:24 Diabetes panel 10/14/16 Range/Units 04:24 Sodium 142 (136-145) mEq/L Potassium 3.3 L (3.5-4.5) mEq/L Chloride 109 (98-109) mEq/L Carbon Dioxide 27 (19-29) mEq/L BUN 14 (7-20) mg/dL Creatinine 0.64 (0.57-1.11) mg/dL Glucose 122 H (70-99) mg/dL Calcium 9.1 (8.6-10.8) mg/dL Calcium panel 10/14/16 Range/Units 04:24 Calcium 9.1 (8.6-10.8) mg/dL Pituitary panel 10/14/16 Range/Units 04:24 Sodium 142 (136-145) mEq/L Potassium 3.3 L (3.5-4.5) mEq/L Chloride 109 (98-109) mEq/L Carbon Dioxide 27 (19-29) mEq/L BUN 14 (7-20) mg/dL Creatinine 0.64 (0.57-1.11) mg/dL Glucose 122 H (70-99) mg/dL Calcium 9.1 (8.6-10.8) mg/dL Adrenal panel 10/14/16 Range/Units 04:24 Sodium 142 (136-145) mEq/L Potassium 3.3 L (3.5-4.5) mEq/L Chloride 109 (98-109) mEq/L Carbon Dioxide 27 (19-29) mEq/L BUN 14 (7-20) mg/dL Creatinine 0.64 (0.57-1.11) mg/dL Glucose 122 H (70-99) mg/dL Calcium 9.1 (8.6-10.8) mg/dL - VTE Documentation of Mechanical Device: Intermittent pneumatic compression device Consult Discharge Plan - Plan Referrals: Chidi Emery MD [Primary Care Provider] - <Luzmaria Glaser - Last Filed: 10/14/16 14:18> Date of Encounter: 10/14/16 - Assessment and Plan (1) DVT prophylaxis Current Visit: Yes Status: Acute (2) Hypokalemia Current Visit: Yes Status: Acute (3) Internal hernia Current Visit: Yes Status: Acute (4) Small bowel obstruction Current Visit: Yes Status: Acute awaiting return of bowel function after surgery continue ngt (5) Hypothyroidism Current Visit: No Status: Chronic start iv synthroid Qualifiers: Hypothyroidism type: unspecified Qualified Code(s): E03.9 - Hypothyroidism , unspecified Subjective Patient reports: no new complaints, feels better, still having pain, pain is less, no flatus, no bowel movement Objective Vital Signs - Last 8 Hours Temp Pulse Resp BP Pulse Ox 10/14/16 11:08 98 F 114 16 135/79 94 10/14/16 07:33 98.1 F 93 16 122/73 93 10/14/16 07:18 91 Intake and Output 10/13/16 10/14/16 10/14/16 23:59 07:59 15:59 Intake Total 0 / 0 1000 / 1000 0 / 0 Output Total 120 / 120 3000 / 3000 400 / 400 Balance -120 / -120 -2000 / -2000 -400 / -400 Intake: IV Fluids 1000 / 1000 0.9 % Sodium Chloride 1, 1000 / 1000 000 ML @ 75 mls/hr IVC . [id number] [facility] Rx#: [id number] Oral 0 / 0 0 / 0 0 / 0 Output: Urine 120 / 120 1300 / 1300 2-way Urethral 1300 / 1300 Catheter 1700 / 1700 400 / 400 Other: Meal NPO Weight 88.904 kg Blood Glucose* 139 119 109 Patient Weight 10/14/16 23:59 Weight 88.904 kg - General physical appearance well developed, well nourished, no distress - Eyes PERRL, normal ocular movement - ENT normal mucosa, normocephalic - Neck Neck exam: trachea midline - Respiratory normal expansion, clear to auscultation - Cardiovascular Cardiovascular exam: Present: RRR, no murmurs/rubs/gallops - Abdomen Abdomen: Present: soft, tender, wound. Absent: bowel sounds present - Integumentary no rash, no growths - Neurologic CN 2-12 grossly intact - Musculoskeletal normal posture - Psychiatric oriented to time, oriented to person, oriented to place, speech is normal, memory intact - Labs 10/13/16 05:02 10/14/16 04:24 BMP 10/14/16 Range/Units 04:24 Sodium 142 (136-145) mEq/L Potassium 3.3 L (3.5-4.5) mEq/L Chloride 109 (98-109) mEq/L Carbon Dioxide 27 (19-29) mEq/L BUN 14 (7-20) mg/dL Creatinine 0.64 (0.57-1.11) mg/dL Glucose 122 H (70-99) mg/dL Calcium 9.1 (8.6-10.8) mg/dL Vital Signs Temp Pulse Resp BP Pulse Ox 10/14/16 11:08 98 F 114 16 135/79 94 10/14/16 07:33 98.1 F 93 16 122/73 93 10/14/16 07:18 91 10/14/16 03:59 98.1 F 110 14 130/79 91 10/13/16 23:34 98.4 F 71 14 135/79 93 10/13/16 18:45 98.1 F 100 14 158/89 93 Intake and Output 10/13/16 10/14/16 10/14/16 23:59 07:59 15:59 Intake Total 0 / 0 1000 / 1000 0 / 0 Output Total 120 / 120 3000 / 3000 400 / 400 Balance -120 / -120 -2000 / -2000 -400 / -400 Intake: IV Fluids 1000 / 1000 0.9 % Sodium Chloride 1, 1000 / 1000 000 ML @ 75 mls/hr IVC . [id number] [facility] Rx#: [id number] Oral 0 / 0 0 / 0 0 / 0 Output: Urine 120 / 120 1300 / 1300 2-way Urethral 1300 / 1300 Catheter 1700 / 1700 400 / 400 Other: Meal NPO Weight 88.904 kg Blood Glucose* 139 119 109 Patient Weight 10/14/16 23:59 Weight 88.904 kg - Attending Attestation I examined this patient and my medical decision-making was reviewed with the FULL STACK DEVELOPER/PA/Advanced Practice Nurse/Resident Physician. I agree with the documented findings, disposition and treatment plan as described except to the extent set forth below.
[2016-10-14] MEDS: 0.45 % Sodium Chloride w/KCl 20 MEQ/1,000 ML MLS IVC SCH (11:32)
[2016-10-14] MEDS ORDERED: Chloraseptic Spray 177 ML BOTTLE MM PRN (12:58)
[2016-10-14] MEDS ORDERED: *HR* Morphine 2 MG/ML SYRINGE IVP PRN (14:16)
[2016-10-14] MEDS: Levothyroxine Sodium 100 MCG VIAL IVP SCH (14:39)
[2016-10-15] MEDS: 0.45 % Sodium Chloride w/KCl 20 MEQ/1,000 ML MLS IVC SCH ×2 (03:33→16:34)
[2016-10-15 05:33] LABS: Basophils % 0.3 %; Eosinophils # 0.2 K/mcL (0.0-0.6); Eosinophils % 2.7 %; Hematocrit 32.5 % (35.3-44.9); Hemoglobin 10.8 g/dL (11.5-15.4); Immature Granulocytes % 0.1 % (0-4); Lymphocytes % 27.3 %; Mean Corpuscular HGB Conc 33.2 g/dL (31.6-35.5); Mean Corpuscular Hemoglobin 28.9 pg (28.0-33.3); Mean Corpuscular Volume 86.9 fL (83.0-100.0); Mean Platelet Volume 9.4 fL (9.4-12.4); Monocytes # 0.7 K/mcL (0.0-1.3); Monocytes % 10.1 %; Neutrophils # 4.2 K/mcL (1.6-8.9); Platelet Count 233 K/mcL (140-400); Red Blood Count 3.74 M/mcL (3.82-4.97); Red Cell Distribution Width 12.8 % (11.5-14.5); Segmented Neutrophils % 59.5 %
[2016-10-15] MEDS: Ketorolac 15 MG/ML VIAL IVP SCH ×3 (05:38→18:09)
[2016-10-15] MEDS: *HR* Heparin 5,000 UNIT/ML VIAL SQ SCH ×2 (05:40→18:09)
[2016-10-15 06:00] LABS: BUN/Creatinine Ratio 26 (6-26); Blood Urea Nitrogen 16 mg/dL (7-20); Calcium 8.7 mg/dL (8.6-10.8); Carbon Dioxide 25 mEq/L (19-29); Chloride 109 mEq/L (98-109); Glucose 86 mg/dL (70-99); Magnesium 1.8 mg/dL (1.6-2.6); Osmolality,Calculated 296 (280-300); Phosphorous 2.8 mg/dL (2.3-4.7); Potassium 3.4 mEq/L (3.5-4.5); Sodium 143 mEq/L (136-145); eGFR For African Americans > 60 (> 60); eGFR For Non-African Americans > 60 (> 60)
[2016-10-15] MEDS: Levothyroxine Sodium 100 MCG VIAL IVP SCH (07:55)
[2016-10-15] MEDS: Pantoprazole 40 MG VIAL IVP SCH (07:56)
--- NOTE | 2016-10-15 09:04 | General Surgery Progress Note ---
<Neo Reyes - Last Filed: 10/15/16 11:39> Date of Encounter: 10/15/16 Time of Encounter: 08:30 - Assessment and Plan (1) Internal hernia Current Visit: Yes Status: Acute POD # 3 s/p exploratory laparotomy with lysis of adhesions and repair of internal hernia. Afebrile. Continue supportive care and management Advancing diet to clears NGT output - 150cc since yesterday. Changed to gravity and monitor for backup in NGT. Throat irritation improved with both lozenge and spray Continue IVF Patient to use ICS Encouraged OOB as much as possible and nursing will clamp NGT for ambulation Pain is well controlled at this time Monitor bowel function (2) Hypokalemia Current Visit: Yes Status: Acute Continue IVF with K. 3.4 today. Will follow. Subjective Patient reports: no new complaints, feels better, pain is less, no flatus, no bowel movement, afebrile, other (good urine output, NGT 500, "I feel my belly rumbling", using ICS and ambulating well) Objective Vital Signs - Last 8 Hours Temp Pulse Resp BP Pulse Ox 10/15/16 08:04 93 10/15/16 07:47 97.8 F 88 16 145/79 93 Intake and Output 10/14/16 10/15/16 10/15/16 23:59 07:59 15:59 Intake Total 60 / 60 1000 / 1000 Output Total 475 / 475 Balance 60 / 60 525 / 525 Intake: IV Fluids 1000 / 1000 KCl 20mEq in 0.45 % NaCl 1000 / 1000 20 meq In 1,000 ml @ 75 mls/hr IVC .[id number] [facility] Rx#:[id number] Oral 60 / 60 Output: Catheter 475 / 475 Other: Meal NPO Percent of Meal Consumed 0% Weight 90.4 kg Blood Glucose* 104 83 Patient Weight 10/15/16 23:59 Weight 90.4 kg - General physical appearance no distress, obese - Eyes normal ocular movement - Neck Neck exam: trachea midline - Respiratory normal respiratory effort, clear to auscultation - Cardiovascular Cardiovascular exam: Present: RRR - Abdomen Abdomen: Present: bowel sounds present (faint), soft, non tender, wound ( midlien incision noted to be c/d/i. bob intact w/o dehiscence. No erythema or drainage.). Absent: guarding, rebound - Incision Incision: Present: clean and dry - Neurologic CN 2-12 grossly intact - Psychiatric oriented to time, oriented to person, oriented to place, speech is normal, memory intact - Labs 10/15/16 04:50 10/15/16 04:50 Short CBC 10/15/16 Range/Units 04:50 WBC 7.1 (4.3-11.1) K/mcL Hgb 10.8 L D (11.5-15.4) g/dL Hct 32.5 L (35.3-44.9) % Plt Count 233 (140-400) K/mcL Neutrophils # 4.2 (1.6-8.9) K/mcL BMP 10/15/16 Range/Units 04:50 Sodium 143 (136-145) mEq/L Potassium 3.4 L (3.5-4.5) mEq/L Chloride 109 (98-109) mEq/L Carbon Dioxide 25 (19-29) mEq/L BUN 16 (7-20) mg/dL Creatinine 0.61 (0.57-1.11) mg/dL Glucose 86 (70-99) mg/dL Calcium 8.7 (8.6-10.8) mg/dL Vital Signs Temp Pulse Resp BP Pulse Ox 10/15/16 08:04 93 10/15/16 07:47 97.8 F 88 16 145/79 93 10/14/16 23:49 98.2 F 101 16 119/74 92 10/14/16 19:55 98.0 F 97 16 133/74 93 10/14/16 16:06 97.9 F 102 16 126/76 92 10/14/16 11:08 98 F 114 16 135/79 94 Intake and Output 10/14/16 10/15/16 10/15/16 23:59 07:59 15:59 Intake Total 60 / 60 1000 / 1000 Output Total 475 / 475 Balance 60 / 60 525 / 525 Intake: IV Fluids 1000 / 1000 KCl 20mEq in 0.45 % NaCl 1000 / 1000 20 meq In 1,000 ml @ 75 mls/hr IVC .[id number] [facility] Rx#:[id number] Oral 60 / 60 Output: Catheter 475 / 475 Other: Meal NPO Percent of Meal Consumed 0% Weight 90.4 kg Blood Glucose* 104 83 Patient Weight 10/15/16 23:59 Weight 90.4 kg - VTE Documentation of Mechanical Device: Intermittent pneumatic compression device Consult Discharge Plan - Plan Referrals: Chidi Emery MD [Primary Care Provider] - <Luzmaria Glaser - Last Filed: 10/15/16 13:52> Date of Encounter: 10/15/16 - Assessment and Plan (1) DVT prophylaxis Current Visit: Yes Status: Acute heparin sq (2) Hypokalemia Current Visit: Yes Status: Acute ivf with 20 kcl (3) Internal hernia Current Visit: Yes Status: Acute patient with bowel sounds, no flatus or bm ngt to gravity and ok to do ice and popcicles, minimal sips clears (4) Small bowel obstruction Current Visit: Yes Status: Acute (5) Hypothyroidism Current Visit: No Status: Chronic continue IV synthroid Qualifiers: Hypothyroidism type: unspecified Qualified Code(s): E03.9 - Hypothyroidism , unspecified (6) Urinary retention with incomplete bladder emptying Current Visit: Yes Status: Acute continue meraz currently due to urinary retention, start flomax Subjective Patient reports: no new complaints, feels better, still having pain, pain is less, no flatus, no bowel movement, afebrile Objective Vital Signs - Last 8 Hours Temp Pulse Resp BP Pulse Ox 10/15/16 12:27 97.3 F L 88 16 129/72 99 10/15/16 08:04 93 10/15/16 07:47 97.8 F 88 16 145/79 93 Intake and Output 10/14/16 10/15/16 10/15/16 23:59 07:59 15:59 Intake Total 60 / 60 1000 / 1000 480 / 480 Output Total 475 / 475 Balance 60 / 60 525 / 525 480 / 480 Intake: IV Fluids 1000 / 1000 KCl 20mEq in 0.45 % NaCl 1000 / 1000 20 meq In 1,000 ml @ 75 mls/hr IVC .[id number] [facility] Rx#:[id number] Oral 60 / 60 480 / 480 Output: Catheter 475 / 475 Other: Meal NPO Clear Percent of Meal Consumed 0% Weight 90.4 kg Blood Glucose* 104 83 Patient Weight 10/15/16 23:59 Weight 90.4 kg - General physical appearance well developed, well nourished, no distress - Eyes PERRL, normal ocular movement - ENT normal mucosa, normocephalic - Neck Neck exam: trachea midline - Respiratory normal respiratory effort, clear to auscultation - Cardiovascular Cardiovascular exam: Present: RRR - Abdomen Abdomen: Present: bowel sounds present, soft, tender (minimal appropriate post op tenderness, no rebound or guarding) - Incision Incision: Present: clean and dry, intact - Integumentary no growths - Neurologic CN 2-12 grossly intact - Musculoskeletal normal gait, normal posture - Psychiatric oriented to time, memory intact - Labs 10/15/16 04:50 10/15/16 04:50 Vital Signs Temp Pulse Resp BP Pulse Ox 10/15/16 12:27 97.3 F L 88 16 129/72 99 10/15/16 08:04 93 10/15/16 07:47 97.8 F 88 16 145/79 93 10/14/16 23:49 98.2 F 101 16 119/74 92 10/14/16 19:55 98.0 F 97 16 133/74 93 10/14/16 16:06 97.9 F 102 16 126/76 92 Intake and Output 10/14/16 10/15/16 10/15/16 23:59 07:59 15:59 Intake Total 60 / 60 1000 / 1000 480 / 480 Output Total 475 / 475 Balance 60 / 60 525 / 525 480 / 480 Intake: IV Fluids 1000 / 1000 KCl 20mEq in 0.45 % NaCl 1000 / 1000 20 meq In 1,000 ml @ 75 mls/hr IVC .[id number] [facility] Rx#:[id number] Oral 60 / 60 480 / 480 Output: Catheter 475 / 475 Other: Meal NPO Clear Percent of Meal Consumed 0% Weight 90.4 kg Blood Glucose* 104 83 Patient Weight 10/15/16 23:59 Weight 90.4 kg Short CBC 10/15/16 Range/Units 04:50 WBC 7.1 (4.3-11.1) K/mcL Hgb 10.8 L D (11.5-15.4) g/dL Hct 32.5 L (35.3-44.9) % Plt Count 233 (140-400) K/mcL Neutrophils # 4.2 (1.6-8.9) K/mcL BMP 10/15/16 Range/Units 04:50 Sodium 143 (136-145) mEq/L Potassium 3.4 L (3.5-4.5) mEq/L Chloride 109 (98-109) mEq/L Carbon Dioxide 25 (19-29) mEq/L BUN 16 (7-20) mg/dL Creatinine 0.61 (0.57-1.11) mg/dL Glucose 86 (70-99) mg/dL Calcium 8.7 (8.6-10.8) mg/dL - Attending Attestation I examined this patient and my medical decision-making was reviewed with the HEAD OF SALES PROMOTION/PA/Advanced Practice Nurse/Resident Physician. I agree with the documented findings, disposition and treatment plan as described except to the extent set forth below.
[2016-10-15] MEDS ORDERED: Potassium Chloride 20 MEQ, Lidocaine 1% 2 ML in D5% in Water 250 ML IVPB ONE (09:08)
[2016-10-16 04:32] LABS: Basophils % 0.3 %; Eosinophils # 0.2 K/mcL (0.0-0.6); Eosinophils % 2.8 %; Hematocrit 33.5 % (35.3-44.9); Hemoglobin 10.9 g/dL (11.5-15.4); Immature Granulocytes % 0.3 % (0-4); Lymphocytes # 1.5 K/mcL (0.6-4.6); Lymphocytes % 24.2 %; Mean Corpuscular HGB Conc 32.5 g/dL (31.6-35.5); Mean Corpuscular Hemoglobin 28.2 pg (28.0-33.3); Mean Corpuscular Volume 86.6 fL (83.0-100.0); Mean Platelet Volume 9.1 fL (9.4-12.4); Monocytes # 0.6 K/mcL (0.0-1.3); Monocytes % 8.8 %; Neutrophils # 4.1 K/mcL (1.6-8.9); Platelet Count 262 K/mcL (140-400); Red Blood Count 3.87 M/mcL (3.82-4.97); Red Cell Distribution Width 12.6 % (11.5-14.5); Segmented Neutrophils % 63.6 %
[2016-10-16 04:43] LABS: BUN/Creatinine Ratio 18 (6-26); Blood Urea Nitrogen 10 mg/dL (7-20); Calcium 8.6 mg/dL (8.6-10.8); Carbon Dioxide 25 mEq/L (19-29); Chloride 108 mEq/L (98-109); Glucose 112 mg/dL (70-99); Osmolality,Calculated 292 (280-300); Potassium 3.6 mEq/L (3.5-4.5); Sodium 141 mEq/L (136-145); eGFR For African Americans > 60 (> 60); eGFR For Non-African Americans > 60 (> 60)
[2016-10-16] MEDS: *HR* Heparin 5,000 UNIT/ML VIAL SQ SCH (05:28)
[2016-10-16] MEDS: 0.45 % Sodium Chloride w/KCl 20 MEQ/1,000 ML MLS IVC SCH (05:31)
[2016-10-16] MEDS: Levothyroxine Sodium 100 MCG VIAL IVP SCH (08:42)
[2016-10-16] MEDS: Pantoprazole 40 MG VIAL IVP SCH (08:42)
--- NOTE | 2016-10-16 10:01 | General Surgery Progress Note ---
Date of Encounter: 10/16/16 Time of Encounter: 09:58 - Assessment and Plan (1) Internal hernia Current Visit: Yes Status: Acute POD # 4 s/p exploratory laparotomy with lysis of adhesions and repair of internal hernia. Afebrile. Continue supportive care and management Advancing diet to full clears NGT d/c last night Continue IVF Encouraged ICS use OOB as much as possible Pain is well controlled at this time Monitor bowel function. 2 BM noted since yesterday. Discharge planning - Once patient is able to tolerate regular diet with return of bowel function (2) Hypokalemia Current Visit: Yes Status: Acute Continue IVF with K. 3.6 today. Will follow. Subjective Patient reports: no new complaints, feels better, pain is less, flatus, bowel movement, afebrile Objective Vital Signs - Last 8 Hours Temp Pulse Resp BP Pulse Ox 10/16/16 08:30 95 10/16/16 06:37 98.7 F 78 15 117/78 95 Intake and Output 10/15/16 10/16/16 10/16/16 23:59 07:59 15:59 Intake Total 1000 / 1000 1550 / 1550 360 / 360 Output Total 800 / 800 1625 / 1625 Balance 200 / 200 -75 / -75 360 / 360 Intake: IV Fluids 1000 / 1000 1000 / 1000 KCl 20mEq in 0.45 % NaCl 1000 / 1000 1000 / 1000 20 meq In 1,000 ml @ 75 mls/hr IVC .[id number] [facility] Rx#:[id number] Oral 0 / 0 550 / 550 360 / 360 Output: Urine 0 / 0 Catheter 800 / 800 1625 / 1625 Other: Weight 96.162 kg Patient Weight 10/16/16 23:59 Weight 96.162 kg - General physical appearance no distress, obese - Eyes normal ocular movement - ENT normal mucosa - Neck Neck exam: trachea midline - Respiratory normal respiratory effort, clear to auscultation - Cardiovascular Cardiovascular exam: Present: RRR, no murmurs/rubs/gallops - Abdomen Abdomen: Present: bowel sounds present, soft, non tender - Incision Incision: Present: clean and dry (midline with bob present), intact. Absent : draining, erythema - Neurologic CN 2-12 grossly intact - Psychiatric oriented to time, oriented to person, oriented to place, speech is normal, memory intact - Labs 10/16/16 03:38 07/10/17 03:38 Diabetes panel 10/16/16 Range/Units 03:38 Sodium 141 (136-145) mEq/L Potassium 3.6 (3.5-4.5) mEq/L Chloride 108 (98-109) mEq/L Carbon Dioxide 25 (19-29) mEq/L BUN 10 (7-20) mg/dL Creatinine 0.56 L (0.57-1.11) mg/dL Glucose 112 H (70-99) mg/dL Calcium 8.6 (8.6-10.8) mg/dL Calcium panel 10/16/16 Range/Units 03:38 Calcium 8.6 (8.6-10.8) mg/dL Pituitary panel 10/16/16 Range/Units 03:38 Sodium 141 (136-145) mEq/L Potassium 3.6 (3.5-4.5) mEq/L Chloride 108 (98-109) mEq/L Carbon Dioxide 25 (19-29) mEq/L BUN 10 (7-20) mg/dL Creatinine 0.56 L (0.57-1.11) mg/dL Glucose 112 H (70-99) mg/dL Calcium 8.6 (8.6-10.8) mg/dL Adrenal panel 10/16/16 Range/Units 03:38 Sodium 141 (136-145) mEq/L Potassium 3.6 (3.5-4.5) mEq/L Chloride 108 (98-109) mEq/L Carbon Dioxide 25 (19-29) mEq/L BUN 10 (7-20) mg/dL Creatinine 0.56 L (0.57-1.11) mg/dL Glucose 112 H (70-99) mg/dL Calcium 8.6 (8.6-10.8) mg/dL - VTE Documentation of Mechanical Device: Intermittent pneumatic compression device Consult Discharge Plan - Plan Referrals: Chidi Emery MD [Primary Care Provider] -
--- NOTE | 2016-10-16 14:34 | Discharge Summary ---
Date of Encounter: 10/16/16 Time of Encounter: 14:30 - Discharge Diagnosis (1) Internal hernia Priority: Primary Status: Resolved - Discharge Medications Prescriptions: Acetaminophen [Tylenol] 1,000 mg PO Q6HR #100 tablet Ibuprofen [Motrin] 800 mg PO Q8HR #50 tablet Home Medications: Levothyroxine [Synthroid] 137 mcg PO DAILY 02/14/15 [History] Sertraline [Zoloft] 100 mg PO DAILY 02/14/15 [History] Simvastatin [Zocor] 40 mg PO HS 02/14/15 [History] Ranitidine HCl [Acid Software Deployment Engineer] 150 mg PO BID 10/12/16 [History] Acetaminophen [Tylenol] 1,000 mg PO Q6HR #100 tablet 10/16/16 [Rx] Ibuprofen [Motrin] 800 mg PO Q8HR #50 tablet 10/16/16 [Rx] Allergies/Adverse Reactions: Allergies No Known Allergies Allergy (Verified 02/14/15 03:20) General Surgery Exam Initial Vital Signs Temp Pulse Resp BP Pulse Ox 97.4 F L 78 20 148/90 96 10/12/16 00:11 10/12/16 00:11 10/12/16 00:11 10/12/16 00:11 10/12/16 00:11 - General physical appearance well developed, well nourished, no distress - Eyes normal ocular movement - ENT normal mucosa, atraumatic, normocephalic - Neck trachea midline - Respiratory normal respiratory effort, clear to auscultation - Cardiovascular Cardiovascular exam: Present: RRR - Abdomen Abdomen general surgery: Present: bowel sounds present, soft, non tender - Incision Incision: Present: clean and dry, intact - Integumentary Integumentary general surgery: Present: warm and dry - Neurologic Present: CN 2-12 grossly intact - Musculoskeletal Present: normal gait, normal posture - Psychiatric Psychiatric general surgery: Present: A&Ox3 Date of admission: 10/12/16 06:12 Primary care physician: Chidi Emery MD Discharging clinician: Naif Jackman [facility]) Anticipated date of discharge: 10/16/16 - Patient Status Disposition: Home, Self-Care Condition: Good Functional capacity at discharge: independent ambulation Overall status at discharge: patient is progressing back to baseline - Discharge Instructions Follow Up With: Chidi Emery MD [Primary Care Provider] - Zandra Renteria CNP [Advanced Practice Nurse] - 10/26/16 8:45 am (surgery follow-up) Additional Instructions: #1 may shower, no tub bath for 2 weeks #2 wash incisions with soap and water and pat dry daily #3 no lifting, pushing, pulling more than 15 pounds for the next 4 weeks #4 no driving until off narcotics for 24 hours and able to safely react in the car #5 may climb stairs - Diet and Activity Activity: other (See additional instructions above) Diet: advance to your usual diet - Hospital Course Hospital course: Ms. Arriola is a 66 year old female who presented to the hospital with acute onset of abdominal pain with associated nausea and vomiting. Her CAT scan revealed an internal hernia with bowel obstruction. She was taken to the operating room urgently for exploratory laparotomy and reduction of internal hernia. She was maintained on bowel rest with NG tube to low intermittent wall suction while awaiting return of bowel function. With return of bowel function , her NG tube was discontinued and she was started on a liquid diet. She tolerated this without difficulty. She has been advanced to full liquids and is currently tolerating this diet. Her vital signs are stable and she is afebrile. Her pain is well-controlled with oral pain medication. She is ambulating and voiding without difficulty. We will begin discharge planning and plan for outpatient follow-up in the next 10-14 days. - Time Spent with Patient Total time spent providing and/or coordinating discharge services: Less than 30 minutes Labs on day of discharge: Labs from last 24 hours 10/16/16 10/16/16 03:38 03:38 WBC 6.4 RBC 3.87 Hgb 10.9 L Hct 33.5 L MCV 86.6 MCH 28.2 MCHC 32.5 RDW 12.6 Plt Count 262 MPV 9.1 L Immature Gran % 0.3 Seg Neutrophils % 63.6 Lymphocytes % 24.2 Monocytes % 8.8 Eosinophils % 2.8 Basophils % 0.3 Neutrophils # 4.1 Lymphocytes # 1.5 Monocytes # 0.6 Eosinophils # 0.2 Basophils # 0.0 Sodium 141 Potassium 3.6 Chloride 108 Carbon Dioxide 25 BUN 10 Creatinine 0.56 L Est GFR ( Amer) > 60 Est GFR (Non-Af Amer) > 60 BUN/Creatinine Ratio 18 Glucose 112 H Calculated Osmolality 292 Calcium 8.6 - Attending Attestation I examined this patient and my medical decision-making was reviewed with the HANDICRAFT OR HOBBY SHOP MANAGER/PA/Advanced Practice Nurse/Resident Physician. I agree with the documented findings, disposition and treatment plan as described except to the extent set forth below.
[2016-10-16 15:01] VITALS: BP 145/83
== END 2016-10-16 16:01 | disposition home or self-care (01) | DRG 337 ==
LOC: 3ANU 00:06 → EMEROO 00:06 → 3ANU 05:09
PROVIDERS: ADMIT Surgery; ATTEND Surgery

== ENCOUNTER 2020-06-15 09:27 | Observation (INO) ==
[2020-06-15] MEDS ORDERED: *HR* FentaNYL (PF) 100 MCG/2 ML VIAL IVP ONE (09:59)
[2020-06-15] MEDS ORDERED: Isovue-370 500 ML BOTTLE IVP ONE (10:00)
[2020-06-15 10:14] LABS: Basophils % 0.3 %; Eosinophils % 0.1 %; Hematocrit 39.4 % (35.3-44.9); Immature Granulocytes % 0.6 % (0-4); Lymphocytes % 7.1 %; Mean Corpuscular Volume 87.8 fL (83.0-100.0); Mean Platelet Volume 9.1 fL (9.4-12.4); Monocytes # 1.3 K/mcL (0.0-1.3); Monocytes % 8.9 %; Platelet Count 288 K/mcL (140-400); Red Blood Count 4.49 M/mcL (3.82-4.97); Red Cell Distribution Width 12.9 % (11.5-14.5); White Blood Count 14.5 K/mcL (4.3-11.1)
[2020-06-15 10:22] LABS: INR 1.1; Prothrombin Time 12.9 Seconds (9.4-12.1)
[2020-06-15 10:25] LABS: Activated Partial Thrombo Time 28.6 Seconds (26.0-36.0)
[2020-06-15 10:31] LABS: BUN/Creatinine Ratio 23 (6-26); Blood Urea Nitrogen 16 mg/dL (8-23); Calcium 9.6 mg/dL (8.6-10.3); Carbon Dioxide 26 mEq/L (23-29); Chloride 101 mEq/L (98-107); Glucose 151 mg/dL (70-105); Osmolality,Calculated 288 (280-300); Potassium 3.9 mEq/L (3.5-5.1); Sodium 137 mEq/L (136-145); Troponin I < 0.03 ng/mL (< 0.04); eGFR For African Americans > 60 (> 60); eGFR For Non-African Americans > 60 (> 60)
[2020-06-15 11:10] LABS: Bacteria,Urine Few per hpf (None-Few); Bilirubin,Urine Negative (Negative); Blood,Urine Small (Negative); Clarity,Urine Clear (Clear); Color,Urine Yellow (Yellow); Glucose,Urine (UA) Normal (Normal); Ketones,Urine Negative (Negative); Leukocyte Esterase,Urine Moderate (Negative); Mucus,Urine Few per lpf (None-Few); Nitrite,Urine Negative (Negative); PH,Urine 6.5 pH Units (5.0-8.0); Protein,Urine Trace mg/dL (Neg-Trace); RBC,Urine 15-30 per hpf (0-3); Specific Gravity,Urine 1.024 (1.010-1.025); Squamous Epithelial Cell,Urine Few per hpf (None-Few); Urobilinogen,Urine Normal (Normal)
[2020-06-15] MEDS ORDERED: 0.9 % Sodium Chloride 1,000 ML IVC ONE (11:57)
[2020-06-15] MEDS ORDERED: Azithromycin 500 MG in 0.9 % Sodium Chloride 250 ML IVPB ONE (12:34)
[2020-06-15] MEDS ORDERED: cefTRIAXone 1,000 MG in 0.9 % Sodium Chloride Mini Bag 100 ML IVPB ONE (12:34)
[2020-06-15] MEDS ORDERED: Ondansetron 4 MG/2 ML VIAL IVP PRN (12:53)
[2020-06-15] MEDS ORDERED: Naloxone 0.4 MG/ML INJ IVP PRN (12:53)
[2020-06-15] MEDS ORDERED: Melatonin 3 MG TABLET PO PRN (12:53)
[2020-06-15] MEDS ORDERED: Ipratropium/Albuterol Neb 3 ML IH PRN (12:59)
[2020-06-15] MEDS: Acetaminophen 325 MG TABLET PO PRN (13:28)
[2020-06-15 14:01] LABS: Magnesium 1.9 mg/dL (1.6-2.6); Phosphorous 2.7 mg/dL (2.7-4.5); Troponin I < 0.03 ng/mL (< 0.04)
[2020-06-15] MEDS: 0.9 % Sodium Chloride 1,000 ML IVC SCH (14:43)
[2020-06-15] MEDS: Ipratropium/Albuterol Neb 3 ML IH SCH ×3 (15:31→19:59)
[2020-06-15] MEDS: *HR* HYDROcodone/Acet 5/325 mg TABLET PO PRN (18:37)
[2020-06-15 19:43] LABS: Troponin I < 0.03 ng/mL (< 0.04)
[2020-06-15] MEDS ORDERED: D5% in Water 1,000 ML IVC PRN (20:50)
[2020-06-15] MEDS ORDERED: *HR* Dextrose 50 % in Water (Vial) 50 ML VIAL IVP PRN (20:50)
[2020-06-15] MEDS ORDERED: Dextrose Gel 15 GM/37.5 ML TUBE PO PRN ×2 (20:50)
[2020-06-15] MEDS ORDERED: Benzonatate 100 MG CAPSULE PO PRN (21:22)
[2020-06-15 21:45] LABS: Thyroid Stimulating Hormone 1.532 mcIU/mL (0.340-5.600)
[2020-06-15] MEDS: Insulin LISPRO 300 UNITS/3 ML VIAL SUBQ SCH (22:47)
[2020-06-15 22:53] LABS: Estimated Average Glucose 143 mg/dl; Hemoglobin A1C 6.6 %
[2020-06-16] MEDS: Ipratropium/Albuterol Neb 3 ML IH SCH ×6 (00:20→20:15)
[2020-06-16] MEDS: 0.9 % Sodium Chloride 1,000 ML IVC SCH (03:25)
[2020-06-16] MEDS: *HR* HYDROcodone/Acet 5/325 mg TABLET PO PRN ×2 (04:22→18:33)
[2020-06-16] MEDS ORDERED: *HR* Enoxaparin 40 MG/0.4 ML SYRINGE SQ SCH (06:00)
[2020-06-16 06:43] LABS: Basophils % 0.3 %; Eosinophils % 0.3 %; Hematocrit 33.8 % (35.3-44.9); Immature Granulocytes % 0.3 % (0-4); Lymphocytes % 9.4 %; Mean Corpuscular HGB Conc 32.8 g/dL (31.6-35.5); Mean Corpuscular Hemoglobin 28.8 pg (28.0-33.3); Mean Corpuscular Volume 87.8 fL (83.0-100.0); Mean Platelet Volume 9.3 fL (9.4-12.4); Monocytes # 1.1 K/mcL (0.0-1.3); Monocytes % 10.3 %; Neutrophils # 8.6 K/mcL (1.6-8.9); Platelet Count 258 K/mcL (140-400); Red Blood Count 3.85 M/mcL (3.82-4.97); Red Cell Distribution Width 13.2 % (11.5-14.5); Segmented Neutrophils % 79.4 %; White Blood Count 10.8 K/mcL (4.3-11.1)
[2020-06-16 06:45] LABS: Hemoglobin 11.1 g/dL (11.5-15.4)
[2020-06-16 07:11] LABS: Alanine Aminotransferase 14 Units/L (7-52); Albumin 3.6 g/dL (3.5-5.7); Albumin/Globulin Ratio 1.5 (1.1-2.2); Alkaline Phosphatase 89 Units/L (34-104); Aspartate Amino Transferase 11 Units/L (13-39); BUN/Creatinine Ratio 20 (6-26); Bilirubin,Total 0.5 mg/dL (0.3-1.0); Blood Urea Nitrogen 11 mg/dL (8-23); Calcium 8.8 mg/dL (8.6-10.3); Carbon Dioxide 24 mEq/L (23-29); Chloride 104 mEq/L (98-107); Globulin 2.4 g/dL (2.4-3.5); Glucose 182 mg/dL (70-105); Osmolality,Calculated 288 (280-300); Phosphorous 2.4 mg/dL (2.7-4.5); Potassium 3.5 mEq/L (3.5-5.1); Sodium 137 mEq/L (136-145); eGFR For African Americans > 60 (> 60); eGFR For Non-African Americans > 60 (> 60)
[2020-06-16] MEDS: Insulin LISPRO 300 UNITS/3 ML VIAL SUBQ SCH ×4 (08:01→20:04)
[2020-06-16] MEDS: cefTRIAXone 1,000 MG in Water for inj. (sterile) 10 ML IVP SCH (08:01)
[2020-06-16] MEDS: Cyanocobalamin (B-12) 1,000 MCG TABLET PO SCH (08:01)
[2020-06-16] MEDS: Multivit/Ca/Min/Fe/FA 1 TAB TABLET PO SCH (08:01)
[2020-06-16] MEDS: Loratadine 10 MG TABLET PO SCH (08:02)
[2020-06-16] MEDS: Acetaminophen 325 MG TABLET PO PRN (12:36)
[2020-06-16] MEDS ORDERED: Azithromycin 500 MG in 0.9 % Sodium Chloride 250 ML IVPB SCH (13:00)
[2020-06-17] MEDS: Acetaminophen 325 MG TABLET PO PRN (00:15)
[2020-06-17] MEDS: Ipratropium/Albuterol Neb 3 ML IH SCH ×6 (00:21→20:25)
[2020-06-17 01:31] LABS: Hematocrit 33.3 % (35.3-44.9); Hemoglobin 10.8 g/dL (11.5-15.4); Mean Corpuscular HGB Conc 32.4 g/dL (31.6-35.5); Mean Corpuscular Hemoglobin 28.1 pg (28.0-33.3); Mean Corpuscular Volume 86.5 fL (83.0-100.0); Mean Platelet Volume 9.1 fL (9.4-12.4); Platelet Count 286 K/mcL (140-400); Red Blood Count 3.85 M/mcL (3.82-4.97); Red Cell Distribution Width 13.2 % (11.5-14.5); White Blood Count 8.9 K/mcL (4.3-11.1)
[2020-06-17 01:54] LABS: BUN/Creatinine Ratio 14 (6-26); Blood Urea Nitrogen 7 mg/dL (8-23); Calcium 8.7 mg/dL (8.6-10.3); Carbon Dioxide 25 mEq/L (23-29); Chloride 103 mEq/L (98-107); Glucose 136 mg/dL (70-105); Osmolality,Calculated 286 (280-300); Phosphorous 2.6 mg/dL (2.7-4.5); Potassium 3.5 mEq/L (3.5-5.1); Sodium 138 mEq/L (136-145); eGFR For African Americans > 60 (> 60); eGFR For Non-African Americans > 60 (> 60)
[2020-06-17] MEDS: Insulin LISPRO 300 UNITS/3 ML VIAL SUBQ SCH ×4 (07:18→20:48)
[2020-06-17] MEDS: cefTRIAXone 1,000 MG in Water for inj. (sterile) 10 ML IVP SCH (08:48)
[2020-06-17] MEDS: Multivit/Ca/Min/Fe/FA 1 TAB TABLET PO SCH (08:48)
[2020-06-17] MEDS: Cyanocobalamin (B-12) 1,000 MCG TABLET PO SCH (08:48)
[2020-06-17] MEDS: Loratadine 10 MG TABLET PO SCH (08:49)
[2020-06-18] MEDS: Ipratropium/Albuterol Neb 3 ML IH SCH ×3 (00:38→04:01)
[2020-06-18 03:10] LABS: Hematocrit 36.2 % (35.3-44.9); Hemoglobin 11.5 g/dL (11.5-15.4); Mean Corpuscular HGB Conc 31.8 g/dL (31.6-35.5); Mean Corpuscular Hemoglobin 28.5 pg (28.0-33.3); Mean Corpuscular Volume 89.8 fL (83.0-100.0); Mean Platelet Volume 9.1 fL (9.4-12.4); Platelet Count 342 K/mcL (140-400); Red Blood Count 4.03 M/mcL (3.82-4.97); Red Cell Distribution Width 13.1 % (11.5-14.5); White Blood Count 8.8 K/mcL (4.3-11.1)
[2020-06-18 06:51] VITALS: BP 131/81
[2020-06-18] MEDS: Insulin LISPRO 300 UNITS/3 ML VIAL SUBQ SCH (07:55)
[2020-06-18] MEDS: Cyanocobalamin (B-12) 1,000 MCG TABLET PO SCH (08:13)
[2020-06-18] MEDS: Multivit/Ca/Min/Fe/FA 1 TAB TABLET PO SCH (08:14)
[2020-06-18] MEDS: Loratadine 10 MG TABLET PO SCH (08:14)
[2020-06-18] MEDS: cefTRIAXone 1,000 MG in Water for inj. (sterile) 10 ML IVP SCH (08:14)
[2020-06-18] MEDS: Acetaminophen 325 MG TABLET PO PRN (08:15)
[2020-06-18] MEDS ORDERED: Azithromycin 250 MG TABLET PO SCH (09:00)
== END 2020-06-18 10:42 | disposition home or self-care (01) ==
LOC: EMEROOARM 09:27 → 3BNU 09:27 → SUATTDRO 13:11 → 3BNU 13:39
PROVIDERS: ADMIT Internal Medicine; ATTEND Nurse Practitioner